=== PATIENT | female | born 1950 | race Caucasian/White ===

== ENCOUNTER 2020-01-22 21:25 | Emergency (ER) | payer MEDICARE, OTHER ==
--- NOTE | 2020-01-22 22:16 | ER Document Report ---
ED Medical Screen (RME) - General Chief Complaint: Passed Out Prior to Arrival Stated Complaint: SYNCOPE EPISODE Time Seen by Provider: 01/22/20 22:07 Primary Care Provider: DK ZUÑIGA MD [Primary Care Provider] - Follow up as needed Mode of Arrival: Wheelchair Information source: Patient, Relative Notes: HPI; 69-year-old female presents to the emergency room with family who states that while she was sitting in a chair she had a syncopal episode. States patient started shaking and then her eyes rolled back in her head and became unresponsive. They moved her to the floor and she awoke on her own. They denied any trauma or injury. History of 1 previous syncopal episode years ago secondary to anemia. Patient has had a recent COVID-19 exposure. Was due to be tested tomorrow. She denies any shortness of breath, no difficulty breathing. Denies any chest pain. PE: Alert and oriented x3. Lungs: Clear to auscultation without rales, rhonchi, wheezes. Heart: Regular rate rhythm without murmurs, rubs, gallops. I have greeted and performed a rapid initial assessment of this patient. A comprehensive ED assessment and evaluation of the patient, analysis of test results and completion of the medical decision making process will be conducted by additional ED providers. I have specifically instructed the patient or family members with the patient to immediately return to any nursing staff should anything change in the patient's condition or with their chief complaint. TRAVEL OUTSIDE OF THE [place] IN LAST 30 DAYS: No Physical Exam - Vital signs Vitals: Temp Pulse Resp BP Pulse Ox 98.1 F 65 16 152/64 H 99 01/22/20 21:50 01/22/20 21:50 01/22/20 21:50 01/22/20 21:50 01/22/20 21:50 Course - Vital Signs Vital signs: Temp Pulse Resp BP Pulse Ox 98.1 F 65 16 152/64 H 99 01/22/20 21:50 01/22/20 21:50 01/22/20 21:50 01/22/20 21:50 01/22/20 21:50 Doctor's Discharge - Discharge Referrals: DK ZUÑIGA MD [Primary Care Provider] - Follow up as needed
--- NOTE | 2020-01-22 23:36 | RADIOLOGY REPORT (SQ) ---
CLINICAL INDICATION: syncope. TECHNIQUE: A single portable AP view was obtained of the chest at 2252 hours. COMPARISON: None. FINDINGS: The cardiomediastinal silhouette is normal. The lungs are grossly clear. No evidence of effusion or pneumothorax. The visualized bones are unremarkable. IMPRESSION: No evidence of active intrathoracic disease.
[2020-01-22 23:58] LABS: ABSOLUTE EOSINOPHILS # (AUTO) 0.1 10^3/uL (0.0-0.6); ABSOLUTE LYMPHOCYTES (AUTO) 0.8 10^3/uL (0.5-4.7); ABSOLUTE MONOCYTES (AUTO) 0.3 10^3/uL (0.1-1.4); ABSOLUTE NEUT (AUTO) 2.7 10^3/uL (1.7-8.2); BASOPHILS % (AUTO) 0.6 % (0-2); EOSINOPHILS % (AUTO) 1.9 % (0-6); HEMATOCRIT 29.7 % (36.0-47.0); HEMOGLOBIN 10.2 g/dL (12.0-15.5); LYMPHOCYTES % (AUTO) 21.2 % (13-45); MEAN CORPUSCULAR HEMOGLOBIN 32.1 pg (27.0-33.4); MEAN CORPUSCULAR HGB CONC 34.4 g/dL (32.0-36.0); MEAN CORPUSCULAR VOLUME 93 fl (80-97); MONOCYTES % (AUTO) 7.3 % (3-13); PLATELET COUNT 171 10^3/uL (150-450); RED BLOOD COUNT 3.18 10^6/uL (3.72-5.28); RED CELL DISTRIBUTION WIDTH 13.9 % (11.5-14.0); TOTAL CELLS COUNTED % (AUTO) 100 %
[2020-01-23 00:07] LABS: APPEARANCE,URINE CLEAR; BILIRUBIN,URINE NEGATIVE (NEGATIVE); COLOR,URINE YELLOW; GLUCOSE, URINE NEGATIVE (NEGATIVE); KETONES,URINE NEGATIVE (NEGATIVE); LEUKOCYTE ESTERASE,URINE SMALL (NEGATIVE); NITRITE,URINE NEGATIVE (NEGATIVE); PROTEIN,URINE NEGATIVE (NEGATIVE); URINE SPECIFIC GRAVITY 1.016
[2020-01-23 00:25] LABS: ALKALINE PHOSPHATASE 56 U/L (38-126); ANION GAP 9 (5-19); ASPARTATE AMINO TRANSFERASE 31 U/L (14-36); BILIRUBIN,DIRECT 0.2 mg/dL (0.0-0.4); BILIRUBIN,TOTAL 0.3 mg/dL (0.2-1.3); BLOOD UREA NITROGEN 24 mg/dL (7-20); CALCIUM 9.2 mg/dL (8.4-10.2); CARBON DIOXIDE 26 mmol/L (22-30); CHLORIDE 105 mmol/L (98-107); GLUCOSE 117 mg/dL (75-110); POTASSIUM 3.9 mmol/L (3.6-5.0); TOTAL PROTEIN 6.7 g/dL (6.3-8.2)
--- NOTE | 2020-01-23 02:42 | RADIOLOGY REPORT (SQ) ---
INDICATION: syncope. COMPARISON: None CORRELATION: None TECHNIQUE: Noncontrast spiral axial CT images were obtained from the skull base to vertex. This exam was performed according to our departmental dose-optimization program, which includes automated exposure control, adjustment of the mA and/or kV according to patient size and/or use of iterative reconstruction techniques. FINDINGS: There is no evidence of acute intracranial hemorrhage, midline shift, mass effect or mass lesion. Slater-white differentiation is normal. There is no evidence of acute large territory infarct. Ventricles and extracerebral spaces are within normal limits, for age. The visualized paranasal sinuses demonstrate retention cysts.. The orbits and eyeballs are unremarkable. The mastoid air cells are clear. Skull base and calvarium appear intact. IMPRESSION: No acute intracranial process is identified. The cause of the patient's syncope is not identified on this examination.
[2020-01-23] MEDS ORDERED: NORMAL SALINE 500 ML IV ONE (02:43)
--- NOTE | 2020-01-23 02:46 | ER Document Report ---
ED Syncope and Near Syncope - General Chief Complaint: Passed Out Prior to Arrival Stated Complaint: SYNCOPE EPISODE Time Seen by Provider: 01/22/20 22:07 Primary Care Provider: DK ZUÑIGA MD [HONORARY] - Follow up as needed Mode of Arrival: Wheelchair Notes: Patient is a 69-year-old female who comes emergency department for chief complaint of syncopal episode. Patient states that she was lying on her bed when her family member suddenly started vomiting in the other room, she states she jumped out of bed and ran into the other room, she states that when she reached the other room she became lightheaded, her vision started blurring and she felt herself starting to pass out. She states that her other family members who came to help the vomiting individuals caught her and eased her to the ground although she does state that she thinks she completely passed out. She denies any head injury, she denies any pain, she denies chest pain, she denies any current symptoms. She states she has passed out one time before secondary to anemia (she had a gastric lesion/tumor removed and has not had this problem since per patient). Past medical history of hypertension, hypothyroidism, she lives at home with her family. 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 She was supposed to be tested tomorrow. TRAVEL OUTSIDE OF THE [place] IN LAST 30 DAYS: No - Related Data Allergies/Adverse Reactions: No Known Allergies Allergy (Verified 01/23/20 02:35) Past Medical History - General Information source: Patient, Relative - Social History Smoking Status: Never Smoker Frequency of alcohol use: None Drug Abuse: None Lives with: Family Family History: Reviewed & Not Pertinent - Past Medical History Cardiac Medical History: Reports: Hx Hypertension Endocrine Medical History: Reports: Hx Hypothyroidism - Immunizations Hx Diphtheria, Pertussis, Tetanus Vaccination: Yes Review of Systems - Review of Systems Constitutional: No symptoms reported EENT: No symptoms reported Cardiovascular: See HPI Respiratory: No symptoms reported Gastrointestinal: No symptoms reported Genitourinary: No symptoms reported Female Genitourinary: No symptoms reported Musculoskeletal: No symptoms reported Skin: No symptoms reported Hematologic/Lymphatic: No symptoms reported Neurological/Psychological: See HPI Physical Exam - Vital signs Vitals: Temp Pulse Resp BP Pulse Ox 98.1 F 65 16 152/64 H 99 01/22/20 21:50 01/22/20 21:50 01/22/20 21:50 01/22/20 21:50 01/22/20 21:50 - Notes Notes: GENERAL: Alert, interacts well. No acute distress. Talkative and well-appearing HEAD: Normocephalic, atraumatic. EYES: Pupils equal, round, and reactive to light. Extraocular movements intact. ENT: Oral mucosa moist, tongue midline. Oropharynx unremarkable. Airway patent. NECK: Full range of motion. Supple. Trachea midline. No lymphadenopathy. LUNGS: Clear to auscultation bilaterally, no wheezes, rales, or rhonchi. No respiratory distress. Non-tender chest wall. HEART: Regular rate and rhythm. No murmur ABDOMEN: Soft, non-tender. Non-distended. Bowel sounds present in all 4 quadrants. GENITOURINARY: Deferred EXTREMITIES: Moves all 4 extremities spontaneously. No edema, normal radial and dorsalis pedis pulses bilaterally. No cyanosis. BACK: no cervical, thoracic, lumbar midline tenderness. No saddle anesthesia, normal distal neurovascular exam. Moves all extremities in full range of motion. NEUROLOGICAL: Alert and oriented x3. Normal speech. Cranial nerves II through XII grossly intact. Strength 5/5 in all extremities. PSYCH: Normal affect, normal mood. SKIN: Warm, dry, normal turgor. No rashes or lesions noted. Course - Re-evaluation Re-evalutation: 01/23/20 02:45 Patient account is somewhat different from the triage note but I asked patient specifically and she gave very specific details. Based on her description I suspect she had vasovagal syncope. She did not have any fall injury, she has no current complaints, patient is talkative, smiling, very youthful in appearance, very well-appearing. EKG does show left bundle branch block, I discussed this with patient, patient states she is aware of this and this is not new. CBC shows mild anemia which was discussed, chemistry nonspecific, troponin is not elevated, chest x-ray unremarkable. Urinalysis shows a few white blood cells, patient has no urinary symptoms, this was cultured. I did review CAT scan of the head from triage as well and this was unremarkable. I discussed all the details with patient. Patient is requesting discharge. Because patient does not have any concerning symptoms associated with her syncope, because she ambulates without any difficulty or symptoms at this time, patient will be discharged with close follow-up instructions and return precautions. Patient is requesting be tested for COVID-19 because she is supposed to be tested tomorrow anyway, this was performed. I discussed return precautions in detail, patient states appreciation and agreement, stable and well-appearing at time of discharge. - Vital Signs Vital signs: Temp Pulse Resp BP Pulse Ox 98.2 F 75 18 122/63 100 01/23/20 04:19 01/23/20 04:19 01/23/20 04:19 01/23/20 04:19 01/23/20 04:19 - Laboratory Result Diagrams: 01/22/20 23:41 01/22/20 23:41 Laboratory results interpreted by me: 01/22/20 01/22/20 01/22/20 23:41 23:41 23:41 RBC 3.18 L Hgb 10.2 L Hct 29.7 L BUN 24 H Glucose 117 H Urine Urobilinogen 2.0 H Ur Leukocyte Esterase SMALL H - EKG Interpretation by Me Additional EKG results interpreted by me: EKG shows sinus rhythm at a rate of 68, left bundle branch block is present, QTC 451, no overt T wave inversions or ST segment changes in consecutive leads Discharge - Discharge Clinical Impression: Episode of syncope Qualifiers: Syncope type: unspecified Qualified Code(s): R55 - Syncope and collapse Condition: Stable Disposition: HOME, SELF-CARE Additional Instructions: Your work-up does show some mild anemia (hemoglobin of 10.2), but no concerning findings are seen on your work-up and evaluation otherwise. This appears to have been an episode of vasovagal syncope as we discussed. Avoid rapid position changes. Follow-up with primary care for additional evaluation management. Return if you worsen including passing out again, chest pain, fever, severe headache, or any other concerning or worsening symptoms. Referrals: DK ZUÑIGA MD [HONORARY] - Follow up as needed
[2020-01-23 04:33] VITALS: BP 122/63
--- NOTE | 2020-01-23 04:59 | EKG REPORT ---
SEVERITY:- ABNORMAL ECG - SINUS RHYTHM LEFT BUNDLE BRANCH BLOCK : Confirmed by: Tamra Giles MD 23-Jan-2020 04:58:45
== END 2020-01-23 04:12 | disposition home or self-care (01) ==
LOC: ER 21:25
DX: U07.1 COVID-19 (principal); R55 Syncope and collapse; R42 Dizziness and giddiness; I10 Essential (primary) hypertension; E03.9 Hypothyroidism, unspecified
CPT/HCPCS: 93005; 99285; 96360; 36415; 87086; 84443; 85025; 80053; 81001; 84484; 71045; 70450; 93010; U0003; J7040; C9803; 87635